=== PATIENT | female | born 1985 | race Caucasian/White ===

== ENCOUNTER 2017-10-31 15:33 | Emergency (ER) | payer MEDICAID ==
[2017-10-31 15:47] VITALS: TEMP 98.2; O2SAT 97
[2017-10-31] MEDS ORDERED: AZITHROMYCIN 250 MG TAB PO ONE (17:16)
[2017-10-31] MEDS ORDERED: CEFTRIAXONE IM 350 MG/ML SYRINGE IM ONE (17:16)
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
[2017-10-31 22:15] VITALS: BP 139/93; PULSE 73; RESP 18
== END 2017-10-31 20:50 | disposition home or self-care (01) ==
LOC: SANE 15:33 → EEVIPCON 15:33 → SANE 20:50
DX: Z04.41 Encounter for examination and observation following alleged adult rape (principal)
CPT/HCPCS: J0696